=== PATIENT | female | born 1945 | race Caucasian/White ===

== ENCOUNTER 2025-01-12 11:28 | Emergency (ER) | payer MEDICARE, OTHER, SELFPAY ==
[2025-01-12] VITALS (41 sets, daily range): BP systolic 104–176; BP diastolic 69–110; PULSE 100–129; TEMP 36.3; O2SAT 88–98
--- OUTSIDE RECORDS SUMMARY | 2025-01-12 11:42 | XMS_ITS | Clinical Summary ---
Author Organization [employer] [facility] tem Address [id number] [place] [address] Care Team Providers Care Editor Book Name Role Phone Edgar Bailey DO Primary Care Provider [phone] Allergies Active AllergyReactionsCriticalityNoted HtqsSbodxhrnGcrndfp97/28/2019CodeineRash Low07/05/2016Nsaids (Non-Steroidal Anti-Inflammatory Drug)07/05/2016 Has had perforated gastric ulcer/partial gastrectomy Medications MedicationSigDispense QuantityRefillsLast FilledStart DateEnd DateStatus triamterene-hydrochlorothiazid (MAXZIDE-25) 37.5-25 mg per tablet Take 1 tablet by mouth daily.Active FLUoxetine (PROzac) 40 MG capsule Take 40 mg by mouth daily. Takes prn Active traZODone (DESYREL) 100 mg tablet Take 150 mg by mouth nightly. Active acetaminophen (TYLENOL) 500 mg tablet Take 1,000 mg by mouth every 6 (six) hours as needed for pain.Active melatonin (CIRCADIN) tablet Take 3 mg by mouth nightly as needed for sleep.Active methylphenidate (RITALIN) 10 mg tablet Take 10 mg by mouth 2 (two) times a day.Active baclofen (LIORESAL) 10 mg tablet Take 2 tablets (20 mg total) by mouth 3 (three) times a day. 90 tablet Active clonazePAM (KlonoPIN) 1 mg tablet Take 1 mg by mouth nightly.Active omeprazole (PriLOSEC) 20 mg capsule TAKE 1 CAPSULE BY MOUTH ONCE DAILY FOR 30 NCYJ559408/10/2018Active traZODone (DESYREL) 150 mg tablet Take 300 mg by mouth nightly.02/11/2019Active potassium chloride (KLOR-CON SPRINKLE) 10 MEQ CR capsule Take by mouth 2 (two) times a day.Active gabapentin (NEURONTIN) 100 mg capsule Indications:Lumbar spondylosis,Disorder of sacrum,Spinal stenosis of lumbar region with neurogenic claudicationTake 1 pill at bedtime x 2 days, then 1 pill BID x 2 days, then 1 pill TID 81 capsule 07/26/2020ctive Active Problems ProblemNoted DateDiagnosed DateCommunity acquired bacterial xteloujlk53/20/2022 Closed fracture of right distal uzxiaop4110/12/2021Generalized abdominal pain 04/01/2019Primary osteoarthritis of right hip01/06/2019 Overview (01/06/2019): Added automatically from request for surgery [id number] Spinal stenosis of lumbar region with neurogenic xlaudsqzmrrk23/25/2019 Overview (11/18/2018): Added automatically from request for surgery [id number] Lumbar ytcmvkajili02/24/2019 Overview (09/16/2018): Added automatically from request for surgery [id number] Disorder of dkexzd0006/10/2018Trochanteric bursitis of right hip06/10/2018Cerumen debris on tympanic membrane of right ear03/25/2017Bilateral hearing loss 03/25/2017Sacrococcygeal disorders, not elsewhere lhnqkuvgfk20/12/2017 Encounters DateTypeDepartmentCare HibpCgjyxjituwx07/22/2025Travelfrom Last 3 Months Immunizations ImmunizationAdministration DatesNext DueCOVID-19, mRNA, LNP-S, PF, 100mcg/0.5mL Dose04/27/2020,03/30/2020Influenza High Dose Preservative Free IM12/16/2014 Influenza, High-dose, Mbkiieqntnke32/08/2021,11/16/2019 Family History Medical HistoryRelationNameCommentsCancerFatherRelationNameStatusCommentsFather (Age 46)Maternal GrandfatherDeceasedMaternal GrandmotherDeceasedMother (Age 82)Paternal GrandfatherDeceasedPaternal GrandmotherDeceased Social History Tobacco UseTypesPacks/DayYears UsedDateSmoking Tobacco: NeverSmokeless Tobacco: NeverAlcohol UseStandard Drinks/WeekCommentsNo0 (1 standard drink = 0.6 oz pure alcohol)ChildcareAnswerDate KmyfetceJaoocebeqDvqvzrp14/30/2019EmploymentAnswer Date AjxiqhdhQjfrswimlmUiecziw01/30/2019Purpose - LifeAnswerDate RecordedPurpose and direction in kfntYdicxlg71/03/2021CommentsNoSex and Gender InformationValueDate RecordedSex Assigned at BirthNot on fileLegal SexFemale 09/29/2014 11:38 AM EDTGender IdentityNot on fileSexual OrientationNot on file Last Filed Vital Signs Vital SignReadingTime TakenCommentsBlood Jnopsdii016/6408 5:45 AM EDT Eihma258610/14/2021 5:45 AM CFOBtalzixkpag09.8 ??C (98.2 ??F)10/14/2021 5:45 AM EDTRespiratory Lebg238810/14/2021 5:45 AM EDTOxygen Jwabbczpqs79%10/14/2021 5:45 AM EDTInhaled Oxygen Concentration--Orkxqm99.9 kg (163 lb)10/13/2021 5:56 PM EDT Fbxlxy986.5 cm (5' 2 )10/13/2021 5:56 PM EDTBody Mass Index29.8110/13/2021 5:56 PM EDT Plan of Treatment Health MaintenanceDue DateLast DoneCommentsDepression Irwncxyda06/22/1957Tobacco Jzbyjtzgc43/22/1956DTaP,Tdap and Td Vaccines (1 - Tdap)02/14/1963Zoster (Shingles) Vaccine (1 of 2)02/14/1994Fall Risk Fktmsbduu40/22/2009RSV ( or age 60+ yrs) (1 - 1-dose 75+ series)02/14/2019COVID-19 Vaccine (3 - season)503/05/2020, 03/30/2020Influenza Hqjqokx55/01/649564/04/2022, 11/01/2020, 11/16/2019, Additional history exists Medical Devices Not on file Procedures Procedure NamePriorityDate/TimeAssociated DiagnosisCommentsURINALYSISRoutine 12/15/2024 11:34 AM EDT Nocturia Other intermediate project manager (current) drug therapy Altered mental status, unspecified Hyperlipidemia, unspecified URINE LEGPAYMHzalwdn42/22/2025 11:34 AM EDT Nocturia Other intermediate project manager (current) drug therapy Altered mental status, unspecified Hyperlipidemia, unspecified COMPREHENSIVE METABOLIC OMBORRbkpiov81/22/2025 11:24 AM EDT Nocturia Other longterm (current) drug therapy Altered mental status, unspecified Hyperlipidemia, unspecified CBC WITH AUTO KOOJBRKSAQAKIspgjgr25/22/2025 11:24 AM EDT Nocturia Other intermediate project manager (current) drug therapy Altered mental status, unspecified Hyperlipidemia, unspecified VNSZDGKrxioim80/22/2025 11:24 AM EDT Nocturia Other longterm (current) drug therapy Altered mental status, unspecified Hyperlipidemia, unspecified VITAMIN A07Moiekaz14/22/2025 11:24 AM EDT Nocturia Other longterm (current) drug therapy Altered mental status, unspecified Hyperlipidemia, unspecified from Last 3 Months Results * (ABNORMAL) Urinalysis (12/15/2024 11:34 AM EDT)ComponentValueRef RangeTest MethodAnalysis TimePerformed AtPathologist SignatureCOLORYellowYellow 12/15/2024 2:[address] [facility]ORATORYTURBIDITYClearClear 12/15/2024 2:[address] [facility] LABORATORYSPECIFIC GRAVITY1.016 1.003 - 1.0685412/15/2024 2:[address] [facility]ORATORYNITRITE BdmbjbqqCmvpimra49/22/2025 2:[address] [facility] PH,URINE6.05.0 - 8.510 2:[address] [facility] LEUKOCYTE NZEUQDIBVzlvkxgqTbwzbdlm96/22/2025 2:[address] [facility]ORATORYPROTEINTrace(A)Vfrovyjj34/22/2025 2:[address] [facility]ORATORYKETONES (URINE)AiamxeluKxuptvwr90/22/2025 2:[address] [facility]ORATORYUROBILINOGEN<1.1 eu/dL<1.1 eu/dL12/15/2024 2:[address] [facility]ORATORYBILIRUBIN (URINE)NegativeNegative 12/15/2024 2:[address] [facility]ORATORYBLOOD/HGBNegative Beylvhbp97/22/2025 2:[address] [facility]ORATORYHYALINE CASTS - 2:[address] [facility]ORATORYMUCOUSPresent (A)None12/15/2024 2:[address] [facility]ORATORYR.B.CELLS - 2:[address] [facility] LABORATORYSQUAMOUS EPITHELIUM2 0 - 2:[address] [facility]ORATORYW.B.CELLS20 - 5 12/15/2024 2:[address] [facility]ORATORYGLUCOSE (URINE) RfvgibldYluwalag61/22/2025 2:[address] [facility] Specimen (Source)Anatomical Location / LateralityCollection Method / Volume Collection TimeReceived TimeUrineUrine / UnknownCollection / Djbjjan9112/15/2024 11:34 AM EDT1 11:34 AM EDT Narrative Authorizing ProviderResult TypeResult StatusDavid Renay DIEZ ORDERABLES Final ResultPerforming OrganizationAddressCity/State/ZIP CodePhone Number [facility] [address] [place] [address], * Urine culture (12/15/2024 11:34 AM EDT)ComponentValueRef RangeTest Method Analysis TimePerformed AtPathologist SignatureCULTURE WAZACCN04-189,000 ORGANISMS/mL NORMAL UROGENITAL FLORA12/16/2024 9:[address] [facility]ORATORYSpecimen (Source)Anatomical Location / LateralityCollection Method / VolumeCollection TimeReceived TimeUrineUrine specimen collection, clean catch / UnknownCollection / Uqzddnv3512/15/2024 11:34 AM EDT1 11:34 AM EDT Narrative Authorizing ProviderResult TypeResult StatusDavid Renay Bailey DOMICROBIOLOGY - GENERAL ORDERABLESFinal ResultPerforming OrganizationAddressCity/State/ZIP Code Phone Number [facility] [address] [place] [address], * (ABNORMAL) CBC auto differential (12/15/2024 11:24 AM EDT)ComponentValueRef RangeTest MethodAnalysis TimePerformed AtPathologist SignatureWBC4.04 - 11 x10E9/L1 2:[address] [facility]ORATORYRBC Count5.05 3.8 - 5.2 X10E12/L1 2:[address] [facility] Vbnfbqndze94.711.7 - 15.5 g/dL12/15/2024 2:[address] [facility] TQQHZIJQWELkqabktmkm03.035 - 47 %12/15/2024 2:[address] [facility] UQLNKVWGYLVUT0646 - 100 fL12/15/2024 2:[address] [facility] NHAAXAYAAXILC15.227 - 34 pg12/15/2024 2:[address] [facility] GKRTUZHCPUJSPV59.632 - 36 g/dL12/15/2024 2:[address] [facility] NVRYVTUTHQJBU85.1(H)11.5 - 15 %12/15/2024 2:[address] [facility] LABORATORYPlatelet Kkytb782500 - 450 X10E9/L1 2:56 PM EDT [facility] TZQVCSASGWIFK98.17 - 12 fL12/15/2024 2:56 PM EDT [facility]ORATORYNeutrophils %60%12/15/2024 2:56 PM EDT [facility]ORATORYLymphocytes %26%12/15/2024 2:56 PM EDT [facility]ORYMonocytes %4%12/15/2024 2:[address] [facility]ORYEosinophils %5%12/15/2024 2:[address] [facility] LABORATORYBasophils %5%12/15/2024 2:[address] [facility] LABORATORYNeutrophils Absolute (M)2.41.5 - 6.6 10*3/uL12/15/2024 2:[address] [facility] LABORATORYLymphocytes Absolute1.01.0 - 3.5 10*3/uL12/15/2024 2:[address] [facility] LABORATORYMonocytes Absolute0.20.0 - 0.9 10*3/uL12/15/2024 2:[address] [facility] LABORATORYEosinophils Absolute0.20.0 - 0.4 10*3/uL12/15/2024 2:[address] [facility] LABORATORYBasophils Absolute0.20.0 - 0.2 10*3/uL12/15/2024 2:[address] [facility] LABORATORYRBC HvkngqslndFbaewm04/22/2025 2:[address] [facility] LABORATORYDifferential TypeMANUAL MHMOEQDSJNMX89/22/2025 2:[address] [facility] LABORATORYSpecimen (Source)Anatomical Location / LateralityCollection Method / VolumeCollection TimeReceived TimeBloodVenous blood / UnknownVenipuncture / Drnecyt6312/15/2024 11:24 AM EDT1 11:24 AM EDT Narrative Authorizing ProviderResult TypeResult StatusDavid Renay ODOM BLOOD ORDERABLESFinal ResultPerforming OrganizationAddressCity/State/ZIP CodePhone Number [facility] [address] [place] [address], * Folate (12/15/2024 11:24 AM EDT)ComponentValueRef RangeTest MethodAnalysis TimePerformed AtPathologist SignatureFOLIC ACID10.7>5.8 ng/mL12/15/2024 2:[address] [facility]ORATORYSpecimen (Source)Anatomical Location / LateralityCollection Method / VolumeCollection TimeReceived TimeBloodVenous blood / UnknownVenipuncture / Jtgyeua7312/15/2024 11:24 AM EDT1 11:24 AM EDT Narrative Authorizing ProviderResult TypeResult StatusDavid C Leo DOLAB BLOOD ORDERABLESFinal ResultPerforming OrganizationAddressCity/State/ZIP CodePhone Number [facility] [address] [place] [address], * Vitamin B12 (12/15/2024 11:24 AM EDT)ComponentValueRef RangeTest Method Analysis TimePerformed AtPathologist SignatureVITAMIN [id number] - 914 pg/mL 12/15/2024 2:[address] [facility] LABORATORYSpecimen (Source) Anatomical Location / LateralityCollection Method / VolumeCollection Time Received TimeBloodVenous blood / UnknownVenipuncture / Wxzbwbz9712/15/2024 11:24 AM EDT1 11:24 AM EDT Narrative Authorizing ProviderResult TypeResult StatusDavid C [facility] BLOOD ORDERABLESFinal ResultPerforming OrganizationAddressCity/State/ZIP CodePhone Number [facility] [address] [place] [address], * Comprehensive metabolic panel (12/15/2024 11:24 AM EDT)ComponentValueRef Range Test MethodAnalysis TimePerformed AtPathologist GssrrtrxeYQPLWB973098 - 146 mmol/L1 2:[address] [facility] LABORATORYPOTASSIUM3.93.5 - 5.0 mmol/L1 2:[address] [facility] LABORATORYCHLORIDE 88650 - 109 mmol/L1 2:[address] [facility] CARB[place] CQVMLKG7996 - 32 mmol/L1 2:[address] [facility]ORATORYANION KRP481 - 15 mmol/L1 2:[address] [facility] LABORATORYBLOOD UREA DUUJEXHK018 - 27 mg/dL12/15/2024 2:[address] [facility]ORATORYCREATININE0.760.40 - 1.00 mg/dL12/15/2024 2:[address] [facility]ORATORYComment:METHOD TRACEABLE TO IDND VWAPOSTKWTGTHVG1840 - 99 mg/dL12/15/2024 2:[address] [facility] LABORATORYCALCIUM9.38.5 - 10.5 mg/dL12/15/2024 2:[address] [facility] LABORATORYTOTAL PROTEIN7.26.0 - 8.0 g/dL12/15/2024 2:[address] [facility] LABORATORYALBUMIN4.33.2 - 5.3 g/dL12/15/2024 2:01 PM [facility] LABORATORYALKALINE ZPHMVQWXXQK4895 - 130 U/L 12/15/2024 2:[address] [facility] UZXTJBRXRRGZP80<=41 U/L 12/15/2024 2:[address] [facility] RNXQZMCNEAWJL87<=31 U/L 12/15/2024 2:[address] [facility] LABORATORYBILIRUBIN,TOTAL0.50.3 - 1.2 mg/dL12/15/2024 2:[address] [facility]ORYEGFR Non- Race Olirfovbg38>=60 ml/min/1.73sq.m1 2:[address] [facility]ORATORYComment: Reported eGFR is based on the CKD-EPI 2020 equation that does not use a race coefficient. Specimen (Source)Anatomical Location / LateralityCollection Method / Volume Collection TimeReceived TimeBloodVenous blood / UnknownVenipuncture / Unknown 12/15/2024 11:24 AM EDT1 11:24 AM EDT Narrative Authorizing ProviderResult TypeResult StatusDavid Renay ODOM BLOOD ORDERABLESFinal ResultPerforming OrganizationAddressCity/State/ZIP CodePhone Number [facility] [address] [place] [address], from Last 3 Months Insurance Advance Directives * Full Code (Latest Code Status on File) Date ActivatedDate InactivatedComments10/13/2021 5:53 AM10/14/2021 11:58 AM Care Teams Team MemberRelationshipSpecialtyStart DateEnd Date Edgar Bailey DO [address] [place] [address] [place] [address] [facility]07/11/16
--- OUTSIDE RECORDS SUMMARY | 2025-01-12 11:42 | XMS_ITS | Clinical Summary ---
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 Phone Unavailable Primary Care Provider Unavailabl e Social History Tobacco UseTypesPacks/DayYears UsedDateSmoking Tobacco: Never AssessedUT Safety & EnvironmentAnswerDate RecordedFear of Current or Ex-PartnerNot on file 04/17/2023Emotionally AbusedNot on file04/17/2023hysically AbusedNot on file 04/17/2023Sexually AbusedNot on file04/17/2023hysically or Sexually AbusedNot on file04/17/2023CommentsUnknownSex and Gender InformationValueDate RecordedSex Assigned at BirthNot on fileLegal KcvEnlgcu88/02/2022 12:47 PM EDT Gender IdentityNot on fileSexual OrientationNot on file Plan of Treatment Health MaintenanceDue DateLast DoneCommentsMedicare Annual Wellness (AWV) 4Depression Ehscohlml87/22/1956Adult Stfkkix6702/14/1966Pneumococcal Vaccine: 50+ Years (1 of 1 - PCV)02/14/1994Zoster Vaccines (1 of 2)02/14/1994 Fall Risk Revmqccrm29/22/2009COVID-19 Vaccine (1 - 2024- season)2024 Influenza Vaccine (#1)2024HIB VaccinesAged OutNo longer eligible based on patient's age to complete this topicHPV VaccinesAged OutNo longer eligible based on patient's age to complete this topicIPV VaccinesAged OutNo longer eligible based on patient's age to complete this topicMeningococcal B VaccineAged OutNo longer eligible based on patient's age to complete this topicMeningococcal VaccineAged OutNo longer eligible based on patient's age to complete this topic Rotavirus VaccinesAged OutNo longer eligible based on patient's age to complete this topic Insurance
--- NOTE | 2025-01-12 11:50 | PC.NURSE ---
pt's oxygen is bt 90 and 92% bon room air. when family asked if pt wears oxygen at home, family states yes at 3L but oxygen is not prescribed to pt per daughter in law. they just have the oxygen at home to use if needed.
--- NOTE | 2025-01-12 11:52 | XR_ITS ---
The [address] [address] Patient Name: JAYESH GUILLEN MRN: [id number] date: 1945 Sex: F Assigned Patient Location: ER Current Patient Location: ED.MAIN Accession/Order Number: [id number] Exam Date: 01/12/2025 12:33 Report Date: 01/12/2025 13:08 At the request of: JOSE RIVER MD Procedure: XR acute abdomen series XR acute abdomen series 01/12/2025 12:40 PM SIGNS AND SYMPTOMS: Vomiting, cough, possible aspiration PROTOCOL: Frontal radiographs of the chest, abdomen, and pelvis COMPARISON: None FINDINGS: The trachea is midline. Atherosclerotic changes are noted in the thoracic aorta. The heart and mediastinal structures are within normal limits. Interstitial prominence is noted. No focal consolidation. The bony thorax is intact. There is a dextro convex curvature of the lumbar spine. There is a nonobstructive bowel gas pattern. No radiographic evidence of free air. Vascular calcifications are present in the pelvis. XR/XR acute abdomen series IMPRESSION: No acute cardiopulmonary pathology. No bowel obstruction or free air. Chronic findings are noted as above. Impression dictated by: Stevie Medina M.D. 01/12/2025 1:08 PM Dictation Location: [place] [address] Electronically authenticated by: [id number] Y Date: 01/12/2025 13:08
--- NOTE | 2025-01-12 11:52 | ECG_ITS ---
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 Measurements Intervals [place] Rate: 124 P: 150 AK: 178 QRS: 58 QRSD: 82 T: -48 QT: 334 QTc: 408 Interpretive Statements SINUS TACHYCARDIA 1470 with occasional supraventricular premature complexes [address] depression, possible subendocardial injury 4664 Twave abnormality, possible inferior ischemia 9150 abnormal ECG No previous ECG available for comparison Electronically Signed On 01-13-2025 6:03:34 EST by ALDAIR MINER M.D.
--- NOTE | 2025-01-12 11:52 | PC.NURSE ---
no vomiting at this time, pt has Alzheimer's per family. Pt can talk but has not spoke since arrival to ER
--- NOTE | 2025-01-12 11:53 | ED.GENADUL1 ---
HPI HPI - General Adult General Chief complaint: Nausea/Vomiting/Diarrhea Stated complaint: vomiting Time Seen by Provider: 01/12/25 11:40 Source: patient Mode of arrival: Wheelchair History of Present Illness HPI narrative: 79-year-old female presents to the emergency department for vomiting which began yesterday. Most of the history is obtained from the patient's daughter who accompanies her. The patient has a history of dementia and is unable to give any good history. The daughter is also worried about pneumonia. She does not have a known fever. Related Data Home Medications ?Medication ?Instructions ?Recorded ?Confirmed fluoxetine 20 mg capsule 40 mg PO DAILY 01/12/25 01/12/25 omeprazole 20 mg capsule,delayed 20 mg PO DAILY 01/12/25 01/12/25 release Previous Rx's ?Medication ?Instructions ?Recorded azithromycin 250 mg tablet See Rx Instructions PO .COMPLEX #6 01/12/25 (Zithromax Z-Fernando) tabs Allergies Allergy/AdvReac Type Severity Reaction Status Date / Time No Known Drug Allergies Allergy Verified 01/12/25 11:39 Review of Systems ROS Narrative Not obtainable, dementia PFSH [facility] Medical History (Updated 01/12/25 @ 17:31 by Mason Guajardo MD) Alzheimer disease ?G30.9 - Alzheimer's disease, unspecified (ICD-10) ?F02.80 - Dementia in other diseases classified elsewhere, unspecified severity, without behavioral disturbance, psychotic disturbance, mood disturbance, and anxiety (ICD-10) Exam Narrative Exam Narrative: Nurses note and vital signs reviewed General:The patient is in no acute respiratory distress but is tachypneic and is frequently clearing her throat. Skin:Warm, dry, no pallor noted. There is no rash noted. Head:Normocephalic, atraumatic Eye: Normal conjunctiva, no drainage Ears, Nose, Mouth, and Throat: oral mucosa is somewhat dry. Nares patent. Cardiovascular:Regular Rate and Rhythm, mildly tachycardic Respiratory:Patient is in no distress, no accessory muscle use, I do not detect rales or rhonchi Back:non-tender GI: Soft and nontender nondistended. No rebound or guarding or mass Musculoskeletal: The patient has no evidence of calf tenderness, no pitting edema, symmetrical pulses noted bilaterally Neurological: Awake and alert. Not fully oriented Psychiatric: Cooperative Constitutional Vital Signs, click to edit/add: Last Vital Signs Temp 97.4 F L 01/12/25 11:32 Pulse 113 H 01/12/25 16:30 Resp 20 01/12/25 16:30 BP 145/89 H 01/12/25 16:30 Pulse Ox 98 01/12/25 16:48 O2 Del Method Nasal Cannula 01/12/25 12:23 O2 Flow Rate 3 01/12/25 12:23 Course Vital Signs Vital signs: Vital Signs Temperature 97.4 F L 01/12/25 11:32 Pulse Rate 124 H 01/12/25 11:32 Respiratory Rate 28 H 01/12/25 11:32 Blood Pressure 104/89 01/12/25 11:32 Pulse Oximetry 91 L 01/12/25 11:32 Oxygen Delivery Method Room Air 01/12/25 11:32 Temperature 97.4 F L 01/12/25 11:32 Pulse Rate 113 H 01/12/25 16:30 Respiratory Rate 20 01/12/25 16:30 Blood Pressure 145/89 H 01/12/25 16:30 Pulse Oximetry 98 01/12/25 16:48 Oxygen Delivery Method Nasal Cannula 01/12/25 12:23 Oxygen Delivery Flow Rate 3 01/12/25 12:23 Medical Decision Making MDM Narrative Medical decision making narrative: The patient was identified to have pneumonia on her CT scan of her abdomen and has a white count of 63,000. Less than a month ago she had a white count of 4000. She also has elevated troponin with ST segment depression laterally and inferiorly. There is no STEMI. She was given aspirin. The intention was to place her on a heparin drip and either admit her here or transfer [facility]. This was discussed thoroughly with the patient's and the patient's [id number]. The patient has a history of dementia and is not able to fully make medical decisions for herself and her is the person who is making decisions. I informed him that the patient should be admitted either here or elsewhere but he adamantly refuses to do so. He states he wants to take her home and keep her comfortable. I think it would be reasonable to admit the patient and at least treat the pneumonia with IV antibiotics and have further cardiac workup. I have explained the risks of not having inpatient care and that not having this care could result in her and he understands these risks and continues to adamantly refuse to have her admitted to the hospital. He is able to make medical decisions for her. The patient's [id number]'s here also and was able to give me most of the history. She would prefer to have the patient admitted to the hospital but is not the decision-maker and is deferring to the patient's . They have requested hospice consult and hospice has seen her here and they have arranged for home hospice care and have made her a DNR CC. Despite the request for hospice and the DNR status I still feel it is appropriate to admit the patient to the hospital and I have explained this several times and appropriately to the patient's and he continues to refuse to have her admitted. The patient will be signed out AGAINST MEDICAL ADVICE. Differential Diagnosis Differential Diagnosis: Dehydration, pneumonia, leukemia, AK, NSTEMI Lab Data Lab results reviewed: Yes I reviewed the patient's lab results Labs: Lab Results 01/12/25 01/12/25 01/12/25 Range/Units 12:10 14:22 14:45 WBC 63.5 H* (4.0-11.0) 10^3/uL RBC 5.28 (4.20-5.40) 10^6/uL Hgb 14.3 (12.0-16.0) g/dL Hct 43.7 (36.0-48.0) % MCV 82.8 (81.0-99.0) fL MCH 27.1 (26.7-34.0) pg MCHC 32.7 (29.9-35.2) g/dL RDW 14.6 (11.0-15.0) % Plt Count 425 (150-450) 10^3/uL MPV 13.8 H (9.5-13.5) fL Seg Neuts % (Manual) 97.0 H (43.0-75.0) Band Neutrophils % 1.0 (0-5) % Lymphocytes % (Manual) 1.0 L (20.5-60.0) % Monocytes % (Manual) 1.0 L (1.7-12.0) % Eosinophils % (Manual) 0.0 L (0.9-7.0) % Basophils % (Manual) 0.0 L (0.2-2.0) % Neutrophils # (Manual) 61.59 H (1.4-6.5) 10^3/uL Band Neutrophils # 0.6 H (0.0-0.3) 10^3/uL Lymphocytes # (Manual) 0.63 L (1.20-3.80) 10^3/uL Monocytes # (Manual) 0.63 (0.30-0.80) 10^3/uL Eosinophils # (Manual) 0.00 (0.00-0.70) 10^3/uL Basophils # (Manual) 0.00 (0.00-0.10) 10^3/uL Giant Platelets 1+ Sodium 141 (136-145) mmol/L Potassium 3.1 L (3.5-5.1) mmol/L Chloride 106 (98-107) mmol/L Carbon Dioxide 20.3 L (21.0-32.0) mmol/L Anion Gap 17.8 BUN 35.0 H (7.0-18.0) mg/dL Creatinine 1.22 H (0.55-1.02) mg/dL Est GFR ( Amer) 51 L (>=60 mL/min/1.73m^2) Est GFR (Non-Af Amer) 42 L (>=60 mL/min/1.73m^2) BUN/Creatinine Ratio 28.7 Glucose 247 H (74-106) mg/dL Lactate 5.1 H* 3.0 H* (0.4-2.0) mmol/L Calcium 9.9 (8.5-10.1) mg/dL Troponin I High Sens 633.8 H* (4.0-51.3) pg/mL Urine Color Yellow (YELLOW) Urine Clarity Clear (CLEAR) Urine pH 5.5 (5.0-9.0) Ur Specific [place] 1.025 (1.005-1.025) Urine Protein >=300 A (NEG/TRACE) mg/dL Urine Glucose (UA) Negative (NEGATIVE) mg/dL Urine Ketones Negative (NEGATIVE) mg/dL Urine Occult Blood Large A (NEGATIVE) Urine Nitrite Negative (NEGATIVE) Urine Bilirubin Negative (NEGATIVE) Urine Urobilinogen 0.2 (0.2-1.0) EU/dL Ur Leukocyte Esterase Negative (NEGATIVE) Urine RBC 0-2 (0-2) #/HPF Urine WBC 0-2 A (NONE SEEN) #/HPF Ur Squamous Epith Cells Rare (NONE/RARE) #/LPF Urine Crystals None seen (None Seen) #/HPF Urine Bacteria Large A (NONE SEEN) #/HPF Urine Casts None seen (NONE SEEN) #/LPF Urine Mucus None seen (NONE SEEN) Ur [place] Indicated[place] [place] Range/Units 15:39 WBC (4.0-11.0) 10^3/uL RBC (4.20-5.40) 10^6/uL Hgb (12.0-16.0) g/dL Hct (36.0-48.0) % MCV (81.0-99.0) fL MCH (26.7-34.0) pg MCHC (29.9-35.2) g/dL RDW (11.0-15.0) % Plt Count (150-450) 10^3/uL MPV (9.5-13.5) fL Seg Neuts % (Manual) (43.0-75.0) Band Neutrophils % (0-5) % Lymphocytes % (Manual) (20.5-60.0) % Monocytes % (Manual) (1.7-12.0) % Eosinophils % (Manual) (0.9-7.0) % Basophils % (Manual) (0.2-2.0) % Neutrophils # (Manual) (1.4-6.5) 10^3/uL Band Neutrophils # (0.0-0.3) 10^3/uL Lymphocytes # (Manual) (1.20-3.80) 10^3/uL Monocytes # (Manual) (0.30-0.80) 10^3/uL Eosinophils # (Manual) (0.00-0.70) 10^3/uL Basophils # (Manual) (0.00-0.10) 10^3/uL Giant Platelets Sodium (136-145) mmol/L Potassium (3.5-5.1) mmol/L Chloride (98-107) mmol/L Carbon Dioxide (21.0-32.0) mmol/L Anion Gap BUN (7.0-18.0) mg/dL Creatinine (0.55-1.02) mg/dL Est GFR ( Amer) (>=60 mL/min/1.73m^2) Est GFR (Non-Af Amer) (>=60 mL/min/1.73m^2) BUN/Creatinine Ratio Glucose (74-106) mg/dL Lactate (0.4-2.0) mmol/L Calcium (8.5-10.1) mg/dL Troponin I High Sens 990.1 H* (4.0-51.3) pg/mL Urine Color (YELLOW) Urine Clarity (CLEAR) Urine pH (5.0-9.0) Ur Specific [place] (1.005-1.025) Urine Protein (NEG/TRACE) mg/dL Urine Glucose (UA) (NEGATIVE) mg/dL Urine Ketones (NEGATIVE) mg/dL Urine Occult Blood (NEGATIVE) Urine Nitrite (NEGATIVE) Urine Bilirubin (NEGATIVE) Urine Urobilinogen (0.2-1.0) EU/dL Ur Leukocyte Esterase (NEGATIVE) Urine RBC (0-2) #/HPF Urine WBC (NONE SEEN) #/HPF Ur Squamous Epith Cells (NONE/RARE) #/LPF Urine Crystals (None Seen) #/HPF Urine Bacteria (NONE SEEN) #/HPF Urine Casts (NONE SEEN) #/LPF Urine Mucus (NONE SEEN) Ur Culture Indicated? Imaging Data CT scan - abdomen: Radiologist's impression: ITS Impressions Chest/Abdomen X-ray 01/12/25 11:52 IMPRESSION: No acute cardiopulmonary pathology. No bowel obstruction or free air. Chronic findings are noted as above. Impression dictated by: Stevie Medina M.D. 01/12/2025 1:08 PM Dictation Location: [place] [address] Electronically authenticated by: [id number] Y Date: 01/12/2025 13:08 Abdomen/Pelvis CT 01/12/25 13:30 IMPRESSION: Suboptimal evaluation due to artifact. Consolidative changes involving the lower lobes suspicious for developing pneumonia. Questionable wall thickening versus nondistention involving the right colon. Developing colitis cannot BE excluded. Questionable cholelithiasis. This can BE confirmed by ultrasound. Impression dictated by: Josh Reddy Jr., D.O. 01/12/2025 2:12 PM Dictation Location: [facility] Electronically authenticated by: [id number] Y Date: 01/12/2025 14:12 ECG Data Attestation: I personally reviewed and interpreted this ECG as follows: (EKG on my interpretation shows sinus sinus rhythm with rate of [address] segment depression inferiorly and laterally.) Critical Care Time Critical Care Time Critical Care Time: Yes Total Critical Care Time: 45 Attestation: Due to the high probability of sudden and clinically significant deterioration in the patient's condition he/she required the highest level of my preparedness to intervene urgently I provided critical care time including documentation time, medication orders and management, reevaluation, vital sign assessment, ordering and reviewing of lab tests, ordering and reviewing of x-ray studies, and admission orders. Aggregate critical care time is 45 minutes including only time during which I was engaged in work directly related to his/her care and did not include time spent treating other patients simultaneously. Discharge Plan Discharge Stand Alone Forms: Portal Instructions Chief Complaint: Nausea/Vomiting/Diarrhea Clinical Impression: Non-ST elevation AK (NSTEMI), Pneumonia, Leukocytosis Patient Disposition: Left Against Medical Advice Time of Disposition Decision: 17:31 Condition: Fair Mode of Transportation: Private Vehicle Prescriptions / Home Meds: New azithromycin [Zithromax Z-Fernando] 250 mg tablet See Rx Instructions .ROUTE .COMPLEX Qty: 6 0RF Rx Instructions: For 250 mg dose pack: take 500 mg today (day 1), then 250 mg for 4 days (days 2-5) No Action fluoxetine 20 mg capsule 40 mg PO DAILY omeprazole 20 mg capsule,delayed release(DR/EC) 20 mg PO DAILY Print Language: Czech Instructions: Heart Attack (DC), Community Acquired Pneumonia (ED) Additional Instructions: Come back to emergency department if your symptoms worsen or you change your mind. Referrals: JESSIE MASON [Primary Care Provider, Family Practice] - 1 week
[2025-01-12] MEDS: DIAZEPAM 10 MG/2 ML SYRINGE 2.5 MG IV (12:11)
[2025-01-12] MEDS: 0.9 % SODIUM CHLORIDE 1,000 ML 1000 ML IV (12:11)
[2025-01-12 12:17] LABS: Hematocrit 43.7 % (36.0-48.0); Hemoglobin 14.3 g/dL (12.0-16.0); Mean Corpuscular HGB Conc 32.7 g/dL (29.9-35.2); Mean Corpuscular Hemoglobin 27.1 pg (26.7-34.0); Mean Corpuscular Volume 82.8 fL (81.0-99.0); Platelet Count 425 10^3/uL (150-450); Red Blood Count 5.28 10^6/uL (4.20-5.40)
--- NOTE | 2025-01-12 12:24 | PC.NURSE ---
after medication pt's oxygen at RA drops to 88%, oxygen nc at 3L placed for this drop in oxygen
[2025-01-12 12:36] LABS: White Blood Count 63.5 10^3/uL (4.0-11.0)
[2025-01-12 12:37] LABS: Band Neutrophils Absolute 0.6 10^3/uL (0.0-0.3); Basophils Abs Manual 0.00 10^3/uL (0.00-0.10); Basophils Percent Manual 0.0 % (0.2-2.0); Eosinophils Absolute Manual 0.00 10^3/uL (0.00-0.70); Eosinophils Percent Manual 0.0 % (0.9-7.0); Lymphocytes Absolute Manual 0.63 10^3/uL (1.20-3.80); Lymphocytes Percent Manual 1.0 % (20.5-60.0); Monocytes Absolute Manual 0.63 10^3/uL (0.30-0.80); Monocytes Percent Manual 1.0 % (1.7-12.0); Segmented Neut Absolute Manual 61.59 10^3/uL (1.4-6.5); Segmented Neutrophils % Manual 97.0 (43.0-75.0)
[2025-01-12 12:38] LABS: Anion Gap 17.8; Blood Urea Nitrogen 35.0 mg/dL (7.0-18.0); Calcium 9.9 mg/dL (8.5-10.1); Carbon Dioxide 20.3 mmol/L (21.0-32.0); Chloride 106 mmol/L (98-107); Estimated GFR (African America 51 (>=60 mL/min/1.73m^2); Estimated GFR (Non-African Ame 42 (>=60 mL/min/1.73m^2); Glucose 247 mg/dL (74-106); Potassium 3.1 mmol/L (3.5-5.1); Sodium 141 mmol/L (136-145)
[2025-01-12 12:40] LABS: Giant Platelets 1+
[2025-01-12] MEDS: ASPIRIN 81 MG TAB.CHEW 324 MG PO (13:06)
--- NOTE | 2025-01-12 13:30 | CT_ITS ---
The [address] [address] Patient Name: JAYESH GUILLEN MRN: [id number] date: 1945 Sex: F Assigned Patient Location: ER Current Patient Location: ER Accession/Order Number: [id number] Exam Date: 01/12/2025 13:40 Report Date: 01/12/2025 14:12 At the request of: JOSE RIVER MD Procedure: CT abdomen pelvis w con CT ABDOMEN AND PELVIS WITH INTRAVENOUS CONTRAST: CLINICAL HISTORY: Vomiting, WBC 63,000 COMPARISON: Acute abdominal series performed earlier today TECHNIQUE: Spiral images were obtained through the abdomen and pelvis following the administration of intravenous contrast. This CT exam was performed using one or more following dose reduction techniques: Automated exposure control, adjustment of the mA and/or kV according to patient size, or use of iterative reconstruction technique. FINDINGS: Lung Bases: [Consolidative changes involving the lower lobes.] Organs:Suboptimal evaluation due to artifact. Questionable stones are seen within the gallbladder lumen. Liver portal vein spleen pancreas and adrenal glands all appear unremarkable. No enhancing renal mass or hydronephrosis. Abdominal aorta appears normal in caliber.[ GI: Stomach is grossly unremarkable. Small bowel appears nondilated. Questionable wall thickening versus nondistention involving the right colon.[ Pelvis:[Urinary bladder is grossly unremarkable. Uterus has been removed.] Peritoneum/Retroperitoneum:No free air, free fluid or lymphadenopathy.[ Abd wall/Bones:Abdominal wall demonstrates no acute findings. Osseous structures demonstrate degenerative change.[Scoliosis. CT/CT abdomen pelvis w con IMPRESSION: Suboptimal evaluation due to artifact. Consolidative changes involving the lower lobes suspicious for developing pneumonia. Questionable wall thickening versus nondistention involving the right colon. Developing colitis cannot BE excluded. Questionable cholelithiasis. This can BE confirmed by ultrasound. Impression dictated by: Josh Reddy Jr., D.O. 01/12/2025 2:12 PM Dictation Location: [facility] Electronically authenticated by: [id number] Y Date: 01/12/2025 14:12
[2025-01-12 14:16] LABS: Lactate/Lactic Acid 5.1 mmol/L (0.4-2.0)
--- NOTE | 2025-01-12 14:47 | SWNOTE1 ---
SW called down to ED to see if SW was needed at this time. At this time, waiting on testing and then likely will need SW assistance.
[2025-01-12 14:58] LABS: Glucose Urine UA NEGATIVE (NEGATIVE)
[2025-01-12 15:07] LABS: Lactate/Lactic Acid 3.0 mmol/L (0.4-2.0)
[2025-01-12 15:19] LABS: Cast Seen? NONE SEEN #/LPF (NONE SEEN); Crystals Seen? None Seen #/HPF (None Seen); Urine Culture Indicated YES-FRMC
[2025-01-12] MEDS: AZITHROMYCIN 500 MG in 0.9 % SODIUM CHLORIDE 250 ML 250 MG IV (15:42)
--- NOTE | 2025-01-12 15:49 | SWNOTE1 ---
SW spoke with ED doctor prior to going in. Pt's and daughter in law in room. Pt is very sick and would need transferred higher level of care. Pt's and daughter in law care takers at home. Pt's is adamint on taking patient home and does not want her to be admitted to hospital. Pt has Dementia and is not able to make a decision. SW met with pt and daughter in law. Right away pt's did let SW know that he does not like doctors or hospitals. He voiced he wants to take patient home. He stated they have been for 65 years and he has been the caregiver for 10 years. He is thankful for his daughter in law and all her help. SW advised that SW is here to help with whatever resources may be needed. SW did explain that from her understanding that pt is very sick, but her illness can be treated if she is admitted to hospital and will need to go to a hospital that provides higher level of care. Pt's and daughter in law did inquire about home IV antibiotics. SW explained that SW is not able to set that up from the ED, it would take a day to get that set up.SW would have to get home health and home infusion company set up. Pt's asked if she could take pills. SW unsure of this. Daughter in law voiced understanding. SW asked what she could do to help. Pt's again is adamant that he wants to take her home and that he is 79+years old and so is she. He stated if she dies on the way home, then he will likely pass away soon as well. Pt's daughter in law voiced that they want her to be comfortable. SW let them both know that comfort at times means bringing hospice services in to help support family and help with any needs that may arise for patient at home. Pt's stated he thought that hospice meant a person was dying the next day. SW explained that Hospice now encourages early intervention to assist with making the best of someone life that they have left. Hospice also is there to support family and provide comfort to patient. Daughter in law spoke to pt's about someone who had hospice in the family and the benefits and that they used [facility]. Pt's and daughter in law in agreement for hospice. SW offered to get someone from [facility] here to hospital prior to discharge to review services. Pt's initially voiced that they can wait until she is home. Daughter in law let him know that pt will be here for another hour or so to get medication. Daughter in law in agreement for hospice to come to the ED. Lab came in to draw blood and pt's conversing with them. At this time pt's and daughter in law in agreement for pt to return home and they do not want her transferred to higher level of care or admitted to hospital. LARWENCE to reach out to [facility]. LAWRENCE updated Dr. Guajardo and pt's nurse aware as well. LAWRENCE called Shaniqua at [facility] in regards to pt. LAWRENCE explained the situation and requested nurse from [facility] come to the ED prior to discharge. Shaniqua in agreement and is going to see if her co-worker is still in [place]. She will message LAWRENCE. LAWRENCE faxed over face sheet, ED draft note, vitals, labs, imaging, and hospice order to [place] office of [facility]. LAWRENCE also messaged Shaniqua that pt has hospital bed and oxygen at home.
--- NOTE | 2025-01-12 16:23 | SWNOTE1 ---
Shaniqua from [facility] arrived in room when LAWRENCE was there. She will discuss hospice care with pt't and daughter in law. LAWRENCE updated physician.
== END 2025-01-12 17:53 | disposition left against medical advice (07) ==
PROVIDERS: Emergency Provider Emergency Medicine; PCP Family Medicine
DX: J18.9 Pneumonia, unspecified organism (principal); Z53.29 Procedure and treatment not carried out because of patient's decision for other reasons; I21.4 Non-ST elevation (NSTEMI) myocardial infarction; D72.829 Elevated white blood cell count, unspecified; F03.90 Unspecified dementia, unspecified severity, without behavioral disturbance, psychotic disturbance, mood disturbance, and anxiety; Z66 Do not resuscitate; R82.998 Other abnormal findings in urine
CPT/HCPCS: 36415; 74022; 74177; 80048; 81001; 83605; 84484; 85007; 85027; 87040; 87086; 93005; 96361; 96365; 96367; 96375; 99285; J0456; J0696; J2405; J3360; Q9967